=== PATIENT | male | born 1960 ===

== ENCOUNTER 2017-01-20 18:27 | Emergency (ER) | payer BC ==
[2017-01-20 19:19] VITALS: BP 137/71
[2017-01-20] MEDS ORDERED: Neomyc/Polym/HC 1% OTIC SUSP* **OTIC LEFT EAR ONE (20:44)
--- NOTE | 2017-01-20 21:31 | UC ---
Jacob Vance Gabriel, scribed for Avi Berry MD on 01/20/17 at 2010 . Ear Complaint HPI - HPI Summary HPI Summary: This patient is a 56 year old M presenting to [facility] with a chief complaint of ear pain since 2 days ago. The patient rates the pain 4/10 in severity. Patient has hearing aids and says it felt tight as he was putting his hearing aid in. He is concerned that there might be a possible ear infection. He recently cleaned his ears with a Q-tip. - History of Current Complaint Chief Complaint: UCEar Stated Complaint: EAR COMPLAINT Time Seen by Provider: 01/20/17 20:04 Hx Obtained From: Patient Onset/Duration: Lasting Days - 2, Still Present Severity Currently: Mild Pain Intensity: 4 Pain Scale Used: 0-10 Numeric - Allergies/Home Medications Allergies/Adverse Reactions: Allergies Allergy/AdvReac Type Severity Reaction Status Date / Time No Known Allergies Allergy Verified 01/20/17 19:19 Home Medications: Home Medications NK [No Home Medications Reported] 01/20/17 [History Confirmed 01/20/17] PMH/Surg Hx/FS Hx/Imm Hx Previously Healthy: Yes - denies any health issues except for hearing loss - Surgical History Surgical History: None - Family History Known Family History: Negative: Cardiac Disease, Hypertension, Diabetes, Renal Disease, Seizure Disorder - Social History Alcohol Use: Rare Substance Use Type: None Smoking Status (MU): Never Smoked Tobacco Review of Systems ENT: Other - ear pain All Other Systems Reviewed And Are Negative: Yes Physical Exam Triage Information Reviewed: Yes Appearance: Well-Appearing, No Pain Distress Vital Signs: Initial Vital Signs Temp 97.7 F 01/20/17 19:16 Pulse 53 01/20/17 19:16 Resp 16 01/20/17 19:16 BP 137/71 01/20/17 19:16 Pulse Ox 100 01/20/17 19:16 Vital Signs Reviewed: Yes Eye Exam: Normal - EOMI, PERRL ENT: Positive: Other - Right tm scaring but nml, left tm obscured by shinny white object that fills up 4/5 of the ear canal Neck exam: Normal Neck: Positive: Supple, Nontender Respiratory Exam: Normal - CTA Respiratory: Positive: Normal breath sounds Cardiovascular Exam: Normal Cardiovascular: Positive: RRR, No Murmur Abdominal Exam: Normal Abdomen Description: Positive: Nontender, Soft Bowel Sounds: Positive: Present Musculoskeletal Exam: Normal Musculoskeletal: Positive: Strength Intact, ROM Intact Neurological Exam: Normal - sensory/motor intact, A&O x3 Psychological Exam: Normal - affect/mood appropriate Skin Exam: Normal - warm, color reflects adequate perfusion, dry Ear Complaint Course/Dx - Course Course Of Treatment: IN THE LEFT EAR CANAL THERE IS A LIGHT SHINY OBJECT. IT DID NOT MOVE WITH IRRIGATION. POSSIBLE FB VERSES SWOLLEN TM. GIVEN ABX DROPS AND F/U WITH ENT. - Differential Dx/Diagnosis Provider Diagnoses: LEFT EAR PAIN Discharge - Discharge Plan Condition: Stable Disposition: HOME Patient Education Materials: Earache (ED) Referrals: [facility] [Provider Group] No Primary Care Phys,NOPCP [Primary Care Provider] - Additional Instructions: FOLLOW UP WITH YOUR ENT FOR FURTHER EVALUATION OF YOUR LEFT EAR PAIN. GET RECHECKED FOR ANY WORSENING OF YOUR CONDITION OR QUESTIONS OR CONCERNS. The documentation as recorded by the Jacob mariscal Gabriel accurately reflects the service I personally performed and the decisions made by me, Avi Berry MD.
== END 2017-01-20 20:55 | disposition home or self-care (01) ==
LOC: UCEAST 18:27
DX: H92.02 Otalgia, left ear (principal)
CPT/HCPCS: 99201; A9270-GY; G0463